=== PATIENT | male | born 1955 | race Caucasian/White ===

== ENCOUNTER 2020-05-17 15:03 | Inpatient (IN) ==
[2020-05-18] MEDS ORDERED: Acetaminophen 325 MG TABLET PO PRN (17:39)
[2020-05-18] MEDS ORDERED: Naloxone 0.4 MG/ML INJ IVP PRN (17:39)
[2020-05-18] MEDS ORDERED: Ondansetron 4 MG/2 ML VIAL IVP PRN (17:39)
[2020-05-18] MEDS ORDERED: Nitroglycerin 0.4 MG TAB.SUBL SL PRN (17:43)
[2020-05-18] MEDS ORDERED: Budesonide Neb 0.5 MG/2 ML IH PRN (17:43)
[2020-05-18] MEDS ORDERED: Lidocaine 4% CREAM (LMX) 5 GM TP PRN (17:43)
[2020-05-18] MEDS ORDERED: *HR* Dextrose 50 % in Water (Vial) 50 ML VIAL IVP PRN (17:47)
[2020-05-18] MEDS ORDERED: Dextrose Gel 15 GM/37.5 ML TUBE PO PRN ×2 (17:47)
[2020-05-18] MEDS ORDERED: D5% in Water 1,000 ML IVC PRN (17:47)
[2020-05-18] MEDS ORDERED: Insulin DETEMIR 100 UNIT/ML per UNIT SUBQ ONE (21:00)
[2020-05-18] MEDS ORDERED: Ipratropium/Albuterol Neb 3 ML IH SCH (21:00)
[2020-05-18] MEDS: Apixaban 5 MG TABLET PO SCH (22:38)
[2020-05-18] MEDS: Nystatin POWDER 30 GM BOTTLE TP SCH (22:39)
[2020-05-18] MEDS: Insulin LISPRO 300 UNITS/3 ML VIAL SUBQ SCH (22:39)
[2020-05-19 08:23] LABS: Hemoglobin 8.9 g/dL (12.9-16.9); Mean Corpuscular HGB Conc 29.7 g/dL (31.6-35.5); Mean Corpuscular Hemoglobin 25.7 pg (28.0-33.3); Mean Corpuscular Volume 86.7 fL (83.0-100.0); Mean Platelet Volume 11.2 fL (9.4-12.4); Red Blood Count 3.46 M/mcL (4.19-5.50); White Blood Count 5.6 K/mcL (4.3-11.1)
[2020-05-19] MEDS: Insulin LISPRO 300 UNITS/3 ML VIAL SUBQ SCH ×4 (08:46→20:26)
[2020-05-19] MEDS: GuaiFENesin Liq 200 MG/10 ML UDC PO SCH (08:48)
[2020-05-19] MEDS: *HR* Digoxin 0.125 MG TABLET PO SCH (08:48)
[2020-05-19] MEDS: Apixaban 5 MG TABLET PO SCH ×2 (08:48→20:35)
[2020-05-19] MEDS: Aspirin 81 MG TAB.CHEW PO SCH (08:49)
[2020-05-19] MEDS: Furosemide 40 MG TABLET PO SCH ×2 (08:49→17:50)
[2020-05-19] MEDS: lisinopriL 5 MG TABLET PO SCH (08:49)
[2020-05-19] MEDS: BuPROPion SR (12 HR) 150 MG TABLET PO SCH (08:49)
[2020-05-19] MEDS: Metoprolol XL (24 HR) Succ 25 MG TAB.ER.24H PO SCH (08:49)
[2020-05-19 08:50] LABS: Platelet Count 98 K/mcL (140-400)
[2020-05-19] MEDS: Insulin DETEMIR 100 UNIT/ML X5UNITS SUBQ SCH ×2 (08:50→20:26)
[2020-05-19] MEDS: Nystatin POWDER 30 GM BOTTLE TP SCH ×2 (08:50→20:35)
[2020-05-19] MEDS: Spironolactone 12.5 MG TABLET PO SCH (08:51)
[2020-05-19 09:07] LABS: BUN/Creatinine Ratio 25 (6-26); Blood Urea Nitrogen 35 mg/dL (8-23); Calcium 8.7 mg/dL (8.6-10.3); Carbon Dioxide 36 mEq/L (23-29); Chloride 93 mEq/L (98-107); Digoxin 0.6 ng/mL (0.8-2.0); Glucose 124 mg/dL (70-105); Osmolality,Calculated 291 (280-300); Sodium 136 mEq/L (136-145); eGFR For African Americans > 60 (> 60); eGFR For Non-African Americans 51 (> 60)
[2020-05-19] MEDS: Dexamethasone Sodium Phos/PF 10 MG/ML VIAL IVP SCH (12:17)
[2020-05-19] MEDS: levoFLOXacin 750 MG TABLET PO SCH (15:27)
[2020-05-20] MEDS: GuaiFENesin Liq 200 MG/10 ML UDC PO SCH (08:19)
[2020-05-20] MEDS: levoFLOXacin 750 MG TABLET PO SCH (08:20)
[2020-05-20] MEDS: Aspirin 81 MG TAB.CHEW PO SCH (08:20)
[2020-05-20] MEDS: Apixaban 5 MG TABLET PO SCH ×2 (08:20→20:59)
[2020-05-20] MEDS: Insulin LISPRO 300 UNITS/3 ML VIAL SUBQ SCH ×4 (08:20→20:59)
[2020-05-20] MEDS: *HR* Digoxin 0.125 MG TABLET PO SCH (08:20)
[2020-05-20] MEDS: BuPROPion SR (12 HR) 150 MG TABLET PO SCH (08:20)
[2020-05-20] MEDS: Dexamethasone Sodium Phos/PF 10 MG/ML VIAL IVP SCH (08:21)
[2020-05-20] MEDS: Nystatin POWDER 30 GM BOTTLE TP SCH ×2 (08:22→21:00)
[2020-05-20] MEDS: Insulin DETEMIR 100 UNIT/ML X5UNITS SUBQ SCH ×2 (08:27→20:59)
[2020-05-20 10:04] LABS: Hematocrit 28.6 % (37.5-50.1); Hemoglobin 8.5 g/dL (12.9-16.9); Immature Granulocytes % 0.5 % (0-4); Lymphocytes # 0.4 K/mcL (0.6-4.6); Lymphocytes % 17.1 %; Mean Corpuscular HGB Conc 29.7 g/dL (31.6-35.5); Mean Corpuscular Hemoglobin 25.8 pg (28.0-33.3); Mean Corpuscular Volume 86.7 fL (83.0-100.0); Mean Platelet Volume 11.6 fL (9.4-12.4); Monocytes # 0.2 K/mcL (0.0-1.3); Monocytes % 6.9 %; Neutrophils # 1.7 K/mcL (1.6-8.9); Platelet Count 74 K/mcL (140-400); Red Cell Distribution Width 17.5 % (11.5-14.5); Segmented Neutrophils % 75.5 %; White Blood Count 2.2 K/mcL (4.3-11.1)
[2020-05-20 10:21] LABS: BUN/Creatinine Ratio 30 (6-26); Blood Urea Nitrogen 42 mg/dL (8-23); Calcium 8.6 mg/dL (8.6-10.3); Carbon Dioxide 35 mEq/L (23-29); Chloride 90 mEq/L (98-107); Glucose 434 mg/dL (70-105); Osmolality,Calculated 301 (280-300); Potassium 4.1 mEq/L (3.5-5.1); Sodium 131 mEq/L (136-145); eGFR For African Americans > 60 (> 60); eGFR For Non-African Americans 50 (> 60)
[2020-05-20 10:22] LABS: Platelet Estimate Marked Decrease (Normal)
[2020-05-20] MEDS: Spironolactone 12.5 MG TABLET PO SCH (12:15)
[2020-05-20] MEDS: lisinopriL 5 MG TABLET PO SCH (12:15)
[2020-05-20] MEDS: Furosemide 40 MG TABLET PO SCH ×2 (12:15→16:28)
[2020-05-20] MEDS: Metoprolol XL (24 HR) Succ 25 MG TAB.ER.24H PO SCH (12:15)
[2020-05-20] MEDS ORDERED: Insulin LISPRO 300 UNITS/3 ML VIAL SUBQ ONE (23:45)
[2020-05-21] MEDS: *HR* Digoxin 0.125 MG TABLET PO SCH (10:10)
[2020-05-21] MEDS: Aspirin 81 MG TAB.CHEW PO SCH (10:10)
[2020-05-21] MEDS: Spironolactone 12.5 MG TABLET PO SCH (10:10)
[2020-05-21] MEDS: BuPROPion SR (12 HR) 150 MG TABLET PO SCH (10:10)
[2020-05-21] MEDS: lisinopriL 5 MG TABLET PO SCH (10:10)
[2020-05-21] MEDS: levoFLOXacin 750 MG TABLET PO SCH (10:10)
[2020-05-21] MEDS: GuaiFENesin Liq 200 MG/10 ML UDC PO SCH (10:10)
[2020-05-21] MEDS: Furosemide 40 MG TABLET PO SCH ×2 (10:10→16:28)
[2020-05-21] MEDS: Apixaban 5 MG TABLET PO SCH ×2 (10:11→21:20)
[2020-05-21] MEDS: Dexamethasone Sodium Phos/PF 10 MG/ML VIAL IVP SCH (10:11)
[2020-05-21] MEDS: Metoprolol XL (24 HR) Succ 25 MG TAB.ER.24H PO SCH (10:11)
[2020-05-21] MEDS: Insulin LISPRO 300 UNITS/3 ML VIAL SUBQ SCH ×4 (10:12→21:20)
[2020-05-21] MEDS: Nystatin POWDER 30 GM BOTTLE TP SCH ×2 (10:12→21:20)
[2020-05-21] MEDS: Insulin DETEMIR 100 UNIT/ML X5UNITS SUBQ SCH ×2 (10:13→21:19)
[2020-05-21 12:43] LABS: Hemoglobin 8.8 g/dL (12.9-16.9); Immature Granulocytes % 0.2 % (0-4); Lymphocytes # 0.3 K/mcL (0.6-4.6); Lymphocytes % 4.6 %; Mean Corpuscular HGB Conc 29.3 g/dL (31.6-35.5); Mean Corpuscular Hemoglobin 25.5 pg (28.0-33.3); Mean Platelet Volume 12.2 fL (9.4-12.4); Monocytes # 0.2 K/mcL (0.0-1.3); Monocytes % 3.7 %; Red Blood Count 3.45 M/mcL (4.19-5.50); Red Cell Distribution Width 17.2 % (11.5-14.5); Segmented Neutrophils % 91.5 %; White Blood Count 5.5 K/mcL (4.3-11.1)
[2020-05-21 12:44] LABS: Platelet Count 85 K/mcL (140-400)
[2020-05-21 12:52] LABS: BUN/Creatinine Ratio 32 (6-26); Blood Urea Nitrogen 39 mg/dL (8-23); Calcium 8.8 mg/dL (8.6-10.3); Carbon Dioxide 34 mEq/L (23-29); Chloride 94 mEq/L (98-107); Glucose 422 mg/dL (70-105); Osmolality,Calculated 307 (280-300); Potassium 4.6 mEq/L (3.5-5.1); Sodium 135 mEq/L (136-145); eGFR For African Americans > 60 (> 60); eGFR For Non-African Americans 59 (> 60)
[2020-05-22] MEDS ORDERED: dexAMETHasone 4 MG TABLET PO SCH ×2 (09:00)
[2020-05-22] MEDS: lisinopriL 5 MG TABLET PO SCH (10:00)
[2020-05-22] MEDS: Insulin LISPRO 300 UNITS/3 ML VIAL SUBQ SCH ×2 (10:00→12:14)
[2020-05-22] MEDS: BuPROPion SR (12 HR) 150 MG TABLET PO SCH (10:01)
[2020-05-22] MEDS: GuaiFENesin Liq 200 MG/10 ML UDC PO SCH (10:01)
[2020-05-22] MEDS: Spironolactone 12.5 MG TABLET PO SCH (10:01)
[2020-05-22] MEDS: Metoprolol XL (24 HR) Succ 25 MG TAB.ER.24H PO SCH (10:01)
[2020-05-22] MEDS: levoFLOXacin 750 MG TABLET PO SCH (10:01)
[2020-05-22] MEDS: Aspirin 81 MG TAB.CHEW PO SCH (10:01)
[2020-05-22] MEDS: Apixaban 5 MG TABLET PO SCH (10:02)
[2020-05-22] MEDS: Furosemide 40 MG TABLET PO SCH (10:02)
[2020-05-22] MEDS: *HR* Digoxin 0.125 MG TABLET PO SCH (10:02)
[2020-05-22] MEDS: Insulin DETEMIR 100 UNIT/ML X5UNITS SUBQ SCH (10:25)
[2020-05-22] MEDS: Nystatin POWDER 30 GM BOTTLE TP SCH (10:35)
[2020-05-22 11:55] VITALS: BP 155/61
== END 2020-05-22 14:48 | disposition home health service (06) | DRG 177 ==
LOC: INPGRE 05-18 19:15
PROVIDERS: ADMIT Family Medicine; ATTEND Family Medicine

== ENCOUNTER 2020-06-13 13:56 | Inpatient (IN) ==
[2020-06-13] MEDS ORDERED: Lidocaine 4% CREAM (LMX) 5 GM TP PRN (14:23)
[2020-06-13] MEDS ORDERED: Nitroglycerin 0.4 MG TAB.SUBL SL PRN (14:23)
[2020-06-13] MEDS ORDERED: Budesonide Neb 0.5 MG/2 ML IH PRN (14:23)
[2020-06-13] MEDS: Ipratropium/Albuterol Neb 3 ML IH SCH ×2 (17:49→22:39)
[2020-06-13] MEDS: Bumetanide 1 MG TABLET PO SCH (18:29)
[2020-06-13] MEDS: Apixaban 5 MG TABLET PO SCH (20:48)
[2020-06-13] MEDS: Nystatin POWDER 30 GM BOTTLE TP SCH (20:48)
[2020-06-13] MEDS ORDERED: QUEtiapine Fumarate 25 MG TABLET PO SCH (21:00)
[2020-06-14] MEDS: Ipratropium/Albuterol Neb 3 ML IH SCH ×3 (03:53→17:42)
[2020-06-14 05:31] LABS: ABG Base Excess 5 mEq/L (-2 to 3); ABG HCO3 31 mEq/L (21-27); ABG Oxygen Saturation 95 % (95-98); ABG PCO2 48 mmHg (35-45); ABG PH 7.41 pH Units (7.32-7.45); ABG PO2 74 mmHg (85-104); ABG TCO2 32 mEq/L (20-26)
[2020-06-14 05:54] LABS: Basophils % 0.1 %; Eosinophils % 0.1 %; Hematocrit 30.6 % (37.5-50.1); Hemoglobin 9.4 g/dL (12.9-16.9); Immature Granulocytes % 0.6 % (0-4); Lymphocytes # 0.6 K/mcL (0.6-4.6); Mean Corpuscular HGB Conc 30.7 g/dL (31.6-35.5); Mean Corpuscular Hemoglobin 25.6 pg (28.0-33.3); Mean Corpuscular Volume 83.4 fL (83.0-100.0); Mean Platelet Volume 10.8 fL (9.4-12.4); Monocytes # 0.6 K/mcL (0.0-1.3); Neutrophils # 5.9 K/mcL (1.6-8.9); Platelet Count 167 K/mcL (140-400); Red Blood Count 3.67 M/mcL (4.19-5.50); Red Cell Distribution Width 17.9 % (11.5-14.5); Segmented Neutrophils % 82.2 %; White Blood Count 7.2 K/mcL (4.3-11.1)
[2020-06-14 06:08] LABS: BUN/Creatinine Ratio 21 (6-26); Blood Urea Nitrogen 24 mg/dL (8-23); Calcium 9.3 mg/dL (8.6-10.3); Carbon Dioxide 33 mEq/L (23-29); Chloride 88 mEq/L (98-107); Glucose 173 mg/dL (70-105); Osmolality,Calculated 288 (280-300); Potassium 4.2 mEq/L (3.5-5.1); Sodium 135 mEq/L (136-145); eGFR For African Americans > 60 (> 60); eGFR For Non-African Americans > 60 (> 60)
[2020-06-14] MEDS ORDERED: GuaiFENesin Liq 200 MG/10 ML UDC PO SCH (09:00)
[2020-06-14] MEDS ORDERED: *HR* Digoxin 0.125 MG TABLET PO SCH (09:00)
[2020-06-14] MEDS ORDERED: Aspirin 81 MG TAB.CHEW PO SCH (09:00)
[2020-06-14] MEDS: Apixaban 5 MG TABLET PO SCH (09:33)
[2020-06-14] MEDS: lisinopriL 5 MG TABLET PO SCH ×2 (09:34→09:43)
[2020-06-14] MEDS: Metoprolol XL (24 HR) Succ 25 MG TAB.ER.24H PO SCH ×2 (09:34→09:43)
[2020-06-14] MEDS: Bumetanide 1 MG TABLET PO SCH ×3 (09:34→17:28)
[2020-06-14] MEDS: Spironolactone 12.5 MG TABLET PO SCH ×2 (09:34→09:43)
[2020-06-14] MEDS: Nystatin POWDER 30 GM BOTTLE TP SCH (09:34)
[2020-06-14] MEDS ORDERED: Dextrose Gel 15 GM/37.5 ML TUBE PO PRN ×2 (11:28)
[2020-06-14] MEDS ORDERED: D5% in Water 1,000 ML IVC PRN (11:28)
[2020-06-14] MEDS ORDERED: *HR* Dextrose 50 % in Water (Vial) 50 ML VIAL IVP PRN (11:28)
[2020-06-14] MEDS ORDERED: Insulin DETEMIR 100 UNIT/ML per UNIT SUBQ ONE (12:00)
[2020-06-14] MEDS ORDERED: levoFLOXacin 750 MG/150 ML 750 MG/150 ML BAG IVPB SCH (12:15)
[2020-06-14] MEDS: Insulin LISPRO 300 UNITS/3 ML VIAL SUBQ SCH ×2 (12:28→17:46)
[2020-06-14] MEDS ORDERED: MethylPREDNISolone 40 MG/ML VIAL IVP SCH (13:00)
[2020-06-14 15:45] VITALS: BP 99/41
[2020-06-14] MEDS ORDERED: 0.9 % Sodium Chloride 250 ML IVC ONE (16:35)
[2020-06-14 16:38] LABS: ABG Base Excess 3 mEq/L (-2 to 3); ABG HCO3 28 mEq/L (21-27); ABG Oxygen Saturation 96 % (95-98); ABG PCO2 43 mmHg (35-45); ABG PH 7.42 pH Units (7.32-7.45); ABG PO2 81 mmHg (85-104); ABG TCO2 30 mEq/L (20-26)
[2020-06-14 17:02] LABS: Calcium 9.1 mg/dL (8.6-10.3); Magnesium 1.9 mg/dL (1.6-2.6); Potassium 4.5 mEq/L (3.5-5.1)
[2020-06-14] MEDS ORDERED: 0.9 % Sodium Chloride 1,000 ML ONE (18:43)
[2020-06-14] MEDS ORDERED: 0.9 % Sodium Chloride 1,000 ML IVC SCH (18:45)
[2020-06-14] MEDS ORDERED: Insulin LISPRO 300 UNITS/3 ML VIAL SUBQ SCH (21:00)
[2020-06-14] MEDS ORDERED: Insulin DETEMIR 100 UNIT/ML X5UNITS SUBQ SCH (21:00)
[2020-06-14] MEDS ORDERED: Ipratropium/Albuterol Neb 3 ML IH SCH (22:00)
== END 2020-06-14 19:36 | disposition short-term general hospital (02) | DRG 193 ==
LOC: INPGRE 15:48
PROVIDERS: ADMIT Family Medicine; ATTEND Family Medicine